=== PATIENT | female | born 1970 | race Caucasian/White ===

== ENCOUNTER 2024-02-04 07:20 | Day surgery (SDC) | payer OTHER ==
[~2024-02-04] VITALS: Ht 157.5 cm; Wt 66.0 kg
[~2024-02-04 07:20] MED LIST: ALPRAZOLAM XR0.5 MG PO; ATENOLOL50 MG PO; IBLOOD GLUCOSE TEST STRIP 1 EA TEST VI PRN; LACTATED RINGER'S 1,000 ML IV SCH; LIDOCAINE HCL 1% 5 ML SDV INJ ONE; LISINOPRIL40 MG PO; MIDAZOLAM HCL 5 MG/5 ML VIAL IV PRN; NORG-EE 0.18-01 EACH PO; TRIAMTERENE-HC1 EAC1 PO; fentaNYL citrate 100 MCG/2 ML VIAL IV PRN
[2024-02-04 07:41] VITALS: BP 155/82
[2024-02-04] MEDS ORDERED: ALDACTONE50 MG PO (07:47)
[2024-02-04] MEDS ORDERED: VITAMIN D3125 MC2 PO (07:49)
[2024-02-04] MEDS ORDERED: VITAMIN C250 M1 PO (07:49)
[2024-02-04] MEDS ORDERED: fentaNYL citrate 100 MCG/2 ML VIAL ONE (08:34)
[2024-02-04] MEDS ORDERED: MIDAZOLAM HCL 5 MG/5 ML VIAL ONE (08:34)
[2024-02-04 09:57] VITALS: BP 124/84
--- NOTE | 2024-02-04 10:12 | NUR ---
02/04/24 1012 Dorothy Sanchez 0992 PT ARRIVED IN PACU WIDE AWAKE WITH NO C/O'S. ABD SOFT. 0940 DR AT BEDSIDE. ALL QUESTIONS ANSWERED. 0950 SITTING UP IN BED SIPPING ON WATER. DC INSTRUCTIONS GIVEN. 1000 GETTING DRESSED. 1004 LEFT VIA W/C.
--- NOTE | 2024-02-06 12:25 | OR ---
[facility] [address], [place] [address] Signed DATE OF OPERATION: 02/04/2024 SURGEON: Joe Paiz MD PREOPERATIVE DIAGNOSIS: Colon screening. POSTOPERATIVE DIAGNOSIS: Scattered diverticula. PROCEDURE: Total colonoscopy to cecum. ANESTHESIA: Intravenous sedation; fentanyl 100 mcg and Versed 7.5 mg. INDICATION: This 53-year-old white woman is a patient of [facility]. She was planning for colonoscopy in December of 2019, though she canceled that. She has no family history of colon cancer though her sister has had polyps. She has no current symptoms of bleeding, diarrhea or constipation. She does have underlying hyperaldosteronism associated with adrenal neoplasm for which spironolactone is controlling her diastolic hypertension. She has had this problem for over 15 years. She is admitted at this time to undergo colonoscopy for screening. She understands the risk of bleeding, infection, and perforation. FINDINGS: The prep was good. Complete colonoscopy was undertaken of the cecum with full intubation of the cecum. There were few scattered diverticula including transverse colon but no other sign of problem, specifically no polyps or colitis. PROCEDURE IN DETAIL: The patient was brought to the endoscopy suite and placed in the lateral decubitus position, given intravenous sedation to the point of slurred speech and nystagmus. Digital rectal examination was normal. An Olympus video colonoscope was passed in the rectum and manipulated throughout the colon noting a few scattered diverticula. The scope was ultimately passed into the cecum. The ileocecal valve and appendiceal orifice were normal. The scope was withdrawn from that point and examination showed no sign of polyps or colitis, only a Electronically Signed By: JOE PAIZ MD 02/06/24 1225 PATIENT NAME: MARIBEL BURLESON OPERATIVE REPORT DATE OF : 66 REPORT #: [id number] PHYSICIAN: JOE PAIZ MD PCP: JOHNNA LUNA REPORT IS CONFIDENTIAL AND NOT TO BE RELEASED WITHOUT AUTHORIZATION [facility] [address] [place] [id number] Signed few scattered diverticula as noted. Retroflexed view of the rectum was normal. Scope was removed and the patient was taken to the recovery room in good condition. CONCLUDING DIAGNOSIS: Minimal diverticula. PLAN: Recommend repeat colonoscopy in 10 years, sooner if symptoms should occur. MD BIBIANA Morillo/LUCIANO /[id number] cc: [facility] Copies: JOHNNA LUNA ~ Electronically Signed By: JOE PAIZ MD 02/06/24 1225 PATIENT NAME: MARIBEL BURLESON OPERATIVE REPORT DATE OF : 66 REPORT #: [id number] PHYSICIAN: JOE PAIZ MD PCP: JOHNNA LUNA REPORT IS CONFIDENTIAL AND NOT TO BE RELEASED WITHOUT AUTHORIZATION
== END 2024-02-04 10:04 | disposition home or self-care (01) ==
LOC: DS 07:20
PROVIDERS: ATTEND Surgery
PROC: 0DJD8ZZ Inspection of Lower Intestinal Tract, Via Natural or Artificial Opening Endoscopic (ICD-10-PCS; principal; 2024-02-04 08:30)
DX: Z12.11 Encounter for screening for malignant neoplasm of colon (principal); E26.9 Hyperaldosteronism, unspecified; Z83.719 Family history of colon polyps, unspecified; K57.90 Diverticulosis of intestine, part unspecified, without perforation or abscess without bleeding
CPT/HCPCS: 99153; G0500; J2250; J3010; J7121